=== PATIENT | male | born 1980 | race Caucasian/White ===

== ENCOUNTER 2023-09-18 18:23 | Emergency (ER) | payer OTHER ==
--- NOTE | 2023-09-18 18:50 | ED ---
URI HPI - General Source: patient, RN notes reviewed <Shanna Cisneros - Last Filed: 09/18/23 18:47> <Gil Raymond - Last Filed: 09/18/23 19:58> - General Stated Complaint: SOB, cough, headache Time Seen by Provider: 09/18/23 18:47 - History of Present Illness Initial Comments: Patient is a 43-year-old male presented ER with chief complaint of cough, congestion and fevers. Patient also was endorses myalgias. He states this been going on for a while but cough has gotten worse within the past couple of days. (Shanna Cisneros) 43-year-old male who is a current smoker presenting with cough, fever, myalgia. Symptoms have worsened over the past 2 or 3 days. Patient denies history of diabetes, denies heart history. Denies history of asthma or COPD. (Gil Raymond) - Related Data Previous Rx's Medication Instructions Recorded Azithromycin [Zithromax Z Pack] 1 tab PO DIRECTED #6 tab 09/18/23 Oseltamivir [Tamiflu] 75 mg PO Q12HR 5 Days #10 cap 09/18/23 Allergies Allergy/AdvReac Type Severity Reaction Status Date / Time No Known Allergies Allergy Verified 09/18/23 18:52 Review of Systems ROS Other: All systems not noted in ROS Statement are negative. <Shanna Cisneros - Last Filed: 09/18/23 18:47> ROS Other: All systems not noted in ROS Statement are negative. <Gil Raymond - Last Filed: 09/18/23 19:58> ROS Statement: Those systems with pertinent positive or pertinent negative responses have been documented in the HPI. General Exam <Shanna Cisneros - Last Filed: 09/18/23 18:47> General appearance: alert, in no apparent distress Head exam: Present: atraumatic, normocephalic Eye exam: Present: normal appearance, PERRL ENT exam: Present: mucous membranes moist Neck exam: Present: normal inspection. Absent: tenderness, meningismus Respiratory exam: Present: normal lung sounds bilaterally. Absent: respiratory distress, wheezes Cardiovascular Exam: Present: regular rate, normal rhythm GI/Abdominal exam: Present: soft. Absent: distended Extremities exam: Present: normal inspection, normal capillary refill Neurological exam: Present: alert, oriented X3, CN II-XII intact, normal gait. Absent: motor sensory deficit Psychiatric exam: Present: normal affect, normal mood Skin exam: Present: warm, dry, intact. Absent: cyanosis, diaphoretic <Gil Raymond - Last Filed: 09/18/23 19:58> - General Exam Comments Initial Comments: Visual Physical Exam Vital signs reviewed General: Well-appearing, nontoxic, no acute distress. Head: Normocephalic, atraumatic Eyes: PERRLA, EOMI ENT: Airway patent Chest: Nonlabored breathing Skin: No visual rash, normal skin tone Neuro: Alert and oriented 3 Musculoskeletal: No gross abnormalities (Shanna Cisneros) Course Vital Signs 09/18/23 18:49 Temperature 101.6 F H Pulse Rate 99 Respiratory 20 Rate Blood Pressure 141/92 O2 Sat by Pulse 98 Oximetry Medical Decision Making <Shanna Cisneros - Last Filed: 09/18/23 18:47> <Gil Raymond - Last Filed: 09/18/23 19:58> - Medical Decision Making I performed the quick note portion of the exam. Electronically signed by Shanna Cisneros PA-C (Shanna Cisneros) Was pt. sent in by a medical professional or institution ([facility] Herrera, DROP WORKER, urgent care, hospital, or residential...) When possible be specific @ -No Did you speak to anyone other than the patient for history (EMS, parent, family, police, friend...)? What history was obtained from this source @ -No Did you review nursing and triage notes (agree or disagree)? Why? @ -I reviewed and agree with nursing and triage notes Were old charts reviewed (outside hosp., previous admission, EMS record, old EKG, old radiological studies, urgent care reports/EKG's, residential records)? Report findings @ -No old charts were reviewed Differential Diagnosis (chest pain, altered mental status, abdominal pain women, abdominal pain men, vaginal bleeding, weakness, fever, dyspnea, syncope, headache, dizziness, GI bleed, back pain, seizure, CVA, palpatations, mental health, musculoskeletal)? @ -Differential Fever: Pneumonia, viral URI, endocarditis, myocarditis, pericarditis, otitis, sinusitis, peritonsillar Abscess, retropharyngeal Abscess, epiglottitis, peritonitis, appendicitis, Barbara cystitis, diverticulitis, hepatitis, colitis, UTI, PID, TOA, pyelonephritis, prostatitis, epididymitis, meningitis, encephalitis, pulmonary embolism, CVA, thyroid storm, pancreatitis, adrenal crisis, cavernous sinus thrombosis, this is not meant to be an all-inclusive list. EKG interpreted by me (3pts min.). @ -As above X-rays interpreted by me (1pt min.). @ -Chest x-ray showing right lower lobe infiltrate CT interpreted by me (1pt min.). @ -None done U/S interpreted by me (1pt. min.). @ -None done What testing was considered but not performed or refused? (CT, X-rays, U/S, labs)? Why? @ -None What meds were considered but not given or refused? Why? @ -None Did you discuss the management of the patient with other professionals (professionals i.e. , PA, DROP WORKER, lab, RT, psych nurse, social media content specialist, agricultural engineering technicians, teacher, program officer, case picker)? Give summary @ -No Was smoking cessation discussed for >3mins.? @ -No Was critical care preformed (if so, how long)? @ -No Were there social determinants of health that impacted care today? How? (Homelessness, low income, unemployed, alcoholism, drug addiction, transportation, low edu. Level, literacy, decrease access to med. care, penitentiary, rehab)? @ -No Was there de-escalation of care discussed even if they declined (Discuss DNR or withdrawal of care, Hospice)? DNR status @ -No What co-morbidities impacted this encounter? (DM, HTN, Smoking, COPD, CAD, Cancer, CVA, ARF, Chemo, Hep., AIDS, mental health diagnosis, sleep apnea, morbid obesity)? @ -Tobacco Was patient admitted / discharged? Hospital course, mention meds given and route, prescriptions, significant lab abnormalities, going to OR and other pertinent info. @ -43-year-old male with flulike symptoms, testing positive for influenza A. Chest x-ray does show right lower lobe infiltrate. Patient is instructed on fever control hydration. He will be prescribed Tamiflu and antibiotic for concurrent bacterial pneumonia. Return parameters discussed. Undiagnosed new problem with uncertain prognosis? @ -No Drug Therapy requiring intensive monitoring for toxicity (Heparin, Nitro, Insulin, Cardizem)? @ -No Were any procedures done? @ -No Diagnosis/symptom? @ -Influenza A, pneumonia Acute, or Chronic, or Acute on Chronic? @ -[Acute Uncomplicated (without systemic symptoms) or Complicated (systemic symptoms)? @ -Default Side effects of treatment? @ -No Exacerbation, Progression, or Severe Exacerbation? @ -No Poses a threat to life or bodily function? How? (Chest pain, [place], [place], pneumonia, PE, COPD, DKA, ARF, appy, cholecystitis, CVA, Diverticulitis, Homicidal, Suicidal, threat to staff... and all critical care pts) @ -[Low risk at this time (Gil Raymond) - Lab Data Lab Results 09/18/23 Range/Units 18:52 Influenza Type A (PCR) Detected A (Not Detectd) Influenza Type B (PCR) Not Detected (Not Detectd) RSV (PCR) Not Detected (Not Detectd) SARS-CoV-2 (PCR) Not Detected (Not Detectd) Disposition <Shanna Cisneros - Last Filed: 09/18/23 18:47> Is patient prescribed a controlled substance at d/c from ED?: No Time of Disposition: 19:51 <Gil Raymond - Last Filed: 09/18/23 19:58> Clinical Impression: Influenza Disposition: HOME SELF-CARE Condition: Fair Instructions (If sedation given, give patient instructions): Influenza (ED) Prescriptions: Oseltamivir [Tamiflu] 75 mg PO Q12HR 5 Days #10 cap Azithromycin [Zithromax Z Pack] 1 tab PO DIRECTED #6 tab Referrals: Nonstaff,Physician [Primary Care Provider] - 1-2 days
[2023-09-18 19:15] VITALS: BP 141/92; PULSE 99; RESP 20; TEMP 101.6
--- NOTE | 2023-09-18 19:31 | XR ---
EXAMINATION TYPE: XR chest 2V DATE OF EXAM: 09/18/2023 7:07 PM CLINICAL INDICATION:Male, 43 years old with history of cough; COMPARISON: None TECHNIQUE: XR chest 2V Frontal and lateral views of the chest. FINDINGS: Lungs/Pleura: Right lower lobe airspace opacities. There is no evidence of pleural effusion, focal co nsolidation, or pneumothorax. Pulmonary vascularity: Unremarkable. Heart/mediastinum: Cardiomediastinal silhouette is unremarkable. Musculoskeletal: No acute osseous pathology. IMPRESSION: Right lower lobe airspace opacities correlate for pneumonia.
== END 2023-09-18 20:06 | disposition home or self-care (01) ==
LOC: EC 18:23
DX: J10.1 Influenza due to other identified influenza virus with other respiratory manifestations (principal); Z20.822 Contact with and (suspected) exposure to COVID-19
CPT/HCPCS: 71046; 87636; 99284

== ENCOUNTER → 2024-07-14 | Outpatient (CLI) | payer OTHER ==
[2024-07-14 19:00] LABS: Basophils # (A) 0.05 X 10*3/uL (0.00-0.10); Basophils % (A) 0.6 %; Eosinophils # (A) 0.17 X 10*3/uL (0.04-0.35); Eosinophils % (A) 2.1 %; HGB 15.9 g/dL (13.0-17.0); Lymphocytes # (A) 2.35 X 10*3/uL (0.90-5.00); Lymphocytes % (A) 29.2 %; MCH 28.7 pg (27.0-32.0); MCHC 32.4 g/dL (32.0-37.0); MCV 88.4 FL (80.0-97.0); Mean Platelet Volume 10.1 FL (9.5-12.2); Monocytes # (A) 0.38 X 10*3/uL (0.20-1.00); Monocytes % (A) 4.7 %; NRBC Per 100 WBC 0 X 10*3/uL (0.00-0.01); Neutrophils # (A) 5.09 X 10*3/uL (1.80-7.70); Neutrophils % (A) 63.2 %; Platelet Count 277 X 10*3/uL (140-440); RBC 5.54 X 10*6/uL (4.40-5.60); WBC 8.06 X 10*3/uL (4.50-10.00)
[2024-07-14 19:21] LABS: VLDL Calculation 18.04 mg/dL (5.00-40.00)
[2024-07-14 19:22] LABS: ALT 25 U/L (10-49); AST 34 U/L (14-35); Albumin 5.1 g/dL (3.8-4.9); Alkaline Phosphatase 67 U/L (41-126); BUN/Creat Ratio 12.56 Ratio (12.00-20.00); Blood Urea Nitrogen 11.3 mg/dL (9.0-27.0); Calcium 10.6 mg/dL (8.7-10.3); Carbon Dioxide 27.6 mmol/L (21.6-31.8); Chloride 100 mmol/L (96-109); Glucose 79 mg/dL (70-110); LDL Cholesterol,Calculated 146.2 mg/dL (0.0-131.0); Potassium 4.3 mmol/L (3.5-5.5); Sodium 139 mmol/L (135-145); Total Bilirubin 0.4 mg/dL (0.3-1.2); Total Protein 8.1 g/dL (6.2-8.2)
[2024-07-14 20:53] LABS: HIV 2 AB Non-Reactive (Non-Reactive); HIV AB P24 Non-Reactive (Non-Reactive); HIV P24 AG Non-Reactive (Non-Reactive)
--- NOTE | 2024-07-15 18:28 | US ---
EXAMINATION TYPE: US groin RT DATE OF EXAM: 07/14/2024 COMPARISON: NONE CLINICAL INDICATION: Male, 44 years old with history of [id number] RT GROIN PAIN; Right groin pain/lump x 1.5 months. TECHNIQUE: Scanned right groin/inguinal canal FINDINGS: Hypoechoic, possible defect seen with movement upon valsalva maneuver within crease of rig ht groin. Possible defect measures 0.5 cm in transverse. Consider additional imaging modality to con firm. IMPRESSION: Right fat containing inguinal hernia suggested, confirmation with CT imaging recommended. [facility], , 07/15/2024 6:26 PM
== END | disposition home or self-care (01) ==
LOC: RADUSWWP 14:56
PROVIDERS: ATTEND Internal Medicine
DX: Z00.00 Encounter for general adult medical examination without abnormal findings (principal); R10.31 Right lower quadrant pain
CPT/HCPCS: 80053; 80061; 84443; 85025; 86803; 87390

== ENCOUNTER → 2024-09-23 | Outpatient (CLI) | payer OTHER ==
[2024-09-23 19:14] LABS: Basophils # (A) 0.05 X 10*3/uL (0.00-0.10); Basophils % (A) 0.8 %; Eosinophils # (A) 0.16 X 10*3/uL (0.04-0.35); Eosinophils % (A) 2.7 %; HCT 42.1 % (39.6-50.0); HGB 14.3 g/dL (13.0-17.0); Lymphocytes # (A) 2.45 X 10*3/uL (0.90-5.00); Lymphocytes % (A) 40.8 %; MCH 30.4 pg (27.0-32.0); MCV 89.4 FL (80.0-97.0); Monocytes # (A) 0.47 X 10*3/uL (0.20-1.00); Monocytes % (A) 7.8 %; NRBC Per 100 WBC 0 X 10*3/uL (0.00-0.01); Neutrophils # (A) 2.86 X 10*3/uL (1.80-7.70); Neutrophils % (A) 47.7 %; Platelet Count 278 X 10*3/uL (140-440); RBC 4.71 X 10*6/uL (4.40-5.60); RDW 13.1 % (11.5-14.5)
== END | disposition home or self-care (01) ==
LOC: LABPAT 12:46
PROVIDERS: ATTEND Surgery
DX: Z01.818 Encounter for other preprocedural examination (principal); K40.90 Unilateral inguinal hernia, without obstruction or gangrene, not specified as recurrent
CPT/HCPCS: 36415; 85025; 86850; 86900; 86901; 93005

== ENCOUNTER 2024-09-28 05:35 | Day surgery (SDC) | payer OTHER ==
[2024-09-27 12:31] VITALS: BMI 25.8
[2024-09-28] MEDS: LACTATED RINGERS 1,000 ML IV ONE (06:22)
[2024-09-28] MEDS ORDERED: HYDROmorphone 0.5 MG/0.5 ML SYRINGE IVP PRN (07:00)
[2024-09-28] MEDS: ACETAMINOPHEN TAB 500 MG TAB PO PRN (07:09)
[2024-09-28] MEDS: LACTATED RINGERS 1,000 ML IV SCH (07:09)
[2024-09-28] MEDS: ONDANSETRON 4 MG/2 ML VIAL IVP ONE (07:15)
[2024-09-28] MEDS: DEXAMETHASONE SOD PHOSPHATE 4 MG/ML 1 ML VIAL IV ONE (07:15)
[2024-09-28 07:22] LABS: ALT 22 U/L (4-49); AST 34 U/L (17-59); African American GFR (CKD) >90 (>60 ml/min/1.73 sqM); Albumin 4.8 g/dL (3.5-5.0); Alkaline Phosphatase 74 U/L (38-126); Anion Gap 10 mmol/L; Blood Urea Nitrogen 15 mg/dL (9-20); Calcium 10.2 mg/dL (8.4-10.2); Carbon Dioxide 28 mmol/L (22-30); Chloride 102 mmol/L (98-107); Glucose 82 mg/dL (74-99); Non-African American GFR(CKD) >90 (>60 ml/min/1.73 sqM); Potassium 4.1 mmol/L (3.5-5.1); Sodium 140 mmol/L (137-145); Total Bilirubin 0.4 mg/dL (0.2-1.3)
[2024-09-28] MEDS: MIDAZOLAM 2 MG/2 ML VIAL IV ONE (07:27)
[2024-09-28] MEDS ORDERED: DEXAMETHASONE SOD PHOSPHATE 4 MG/ML 1 ML VIAL ONE (07:39)
[2024-09-28] MEDS ORDERED: PROPOFOL 10 MG/ML 20 ML VIAL IV ONE (07:39)
[2024-09-28] MEDS ORDERED: MIDAZOLAM 2 MG/2 ML VIAL ONE (07:39)
[2024-09-28] MEDS ORDERED: KETOROLAC 15 MG/ML 1 ML VIAL ONE (07:39)
[2024-09-28] MEDS ORDERED: ROCURONIUM 10 MG/ML (5 ML VIAL) IV ONE (07:39)
[2024-09-28] MEDS ORDERED: NEOSTIGMINE 1 MG/ML 10 ML VIAL ONE (07:39)
[2024-09-28] MEDS ORDERED: SUCCINYLCHOLINE CHLORIDE 200 MG/10 ML VIAL IV ONE (07:39)
[2024-09-28] MEDS ORDERED: fentaNYL (PF) 50 MCG/ML 2 ML AMP ONE (07:39)
[2024-09-28] MEDS ORDERED: SODIUM CHLORIDE 0.9% (PF) 10 ML VIAL ONE (07:39)
[2024-09-28] MEDS ORDERED: GLYCOPYRROLATE 0.2 MG/ML 2 ML VIAL ONE (07:39)
[2024-09-28] MEDS ORDERED: KETAMINE HCL IN 0.9 % NACL 50 MG/5 ML SYRINGE ONE (07:39)
[2024-09-28] MEDS ORDERED: ROPIVACAINE 5 MG/ML 30 ML VIAL ONE (07:39)
[2024-09-28] MEDS ORDERED: LIDOCAINE 1% INJ 10MG/ML (20 ML MDV) ONE (07:39)
[2024-09-28] MEDS: HEPARIN SODIUM,PORCINE 5,000 UNIT/ML 1 ML VIAL SQ PRN (07:40)
[2024-09-28] MEDS: LIDOCAINE 2%-EPI 1:100,000 20 ML VIAL SQ ONE (08:04)
[2024-09-28 08:46] VITALS: TEMP 96.8
--- NOTE | 2024-09-28 08:48 | P.OP ---
Date of Procedure: 09/28/24 Preoperative Diagnosis: Recurrent right inguinal hernia Postoperative Diagnosis: Same Procedure(s) Performed: Laparoscopic robot-assisted repair of recurrent right inguinal hernia Transversus abdominis plane block Anesthesia: LYNETTEA Surgeon: Bandar Wylie Estimated Blood Loss (ml): 5 Pathology: none sent Condition: stable Disposition: PACU Description of Procedure: My robotic
[2024-09-28] MEDS: IV FLUID CONTINUATION 1,000 ML IV ONE (08:51)
--- NOTE | 2024-09-28 08:58 | P.OP ---
Date of Procedure: 09/28/24 Preoperative Diagnosis: Recurrent right inguinal hernia Postoperative Diagnosis: Recurrent right inguinal hernia Procedure(s) Performed: Laparoscopic robot-assisted pair of recurrent right inguinal hernia transversus abdominis plane block Anesthesia: DEBBIE BOSWELL Surgeon: Bandar Wylie Estimated Blood Loss (ml): 5 Pathology: none sent Condition: stable Disposition: PACU Description of Procedure: The patient's placed on the operating table in the supine position. The patient received general anesthesia. The patient's abdomen was prepped and draped in usual sterile fashion. The skin was anesthetized 1% local Xylocaine at the incision sites. Using an 11 blade a skin incision was made at the umbilicus. The fascia was grasped with a [place] and then the peritoneal cavity was entered with the Veress needle. Position of the Veress needle was confirmed with a positive drop test. After adequate insufflation a 5 mm trocar was placed into the peritoneal cavity. The Laparoscope was placed the peritoneal cavity. And a robotic 8 mm trocar was placed in the right lateral position and then another 8 mm robotic trochars placed in the left lateral position. The original 5 mm trocar was exchanged for a 8 mm trocar. A four quadrant transversus abdominal bloc was performed with 1% local xylocaine. The patient was placed in reverse Trendelenburg and then the patient was docked to the robot. Next the peritoneum over top of the hernia was incised and then using blunt and sharp dissection and electrocautery the hernia sac was dissected free from the floor of the inguinal canal. The hernia sac was completely reduced into the peritoneal cavity. The cord lipoma was diseected free and sent to pathology And then using the Pro pipe smoking machine operator mesh the hernia was repaired. The peritoneum was then sutured with 20V lock suture. The patient was then undocked the robot. The needle was withdrawn from the peritoneal cavity. The umbilical trocar site was closed with 0 Ethibond suture. The skin was closed interrupted 3-0 Monocryl suture. Dermabond dressing was applied. Patient was sent to recovery in stable condition.
[2024-09-28 09:10] VITALS: RESP 16
[2024-09-28 09:54] VITALS: BP 132/76; PULSE 52
--- NOTE | 2024-09-28 11:05 | P.ANPRN ---
Procedure Note - Anesthesia - Nerve Block Performed Bilateral Erector Spinae Single Time Out Performed: Yes Date of Procedure: 09/28/24 Procedure Start Time: : Procedure Stop Time: :39 Location of Patient: PreOp Indication: Acute Post-Operative Pain, Requested by Surgeon Sedation Type: Sedate with meaningful contact maintained Preparation: Sterile Prep Position: Prone Needle Types: Pajunk Needle Gauge: 21 Ultrasound used to visualize needle placement: Yes Ultrasound used to observe medication spread: Yes Blood Aspirated: No Pain Paresthesia on Injection Noted: No Resistance on Injection: Normal Image Stored and Saved: Yes Events: Uneventful and Well Tolerated (Ropivacaine 0.5% 15 cc plus dexamethasone 4 mg plus normal saline 10 cc given bilaterally at L1)
== END 2024-09-28 09:58 | disposition home or self-care (01) ==
LOC: OR 05:35
PROVIDERS: ATTEND Surgery
DX: K40.91 Unilateral inguinal hernia, without obstruction or gangrene, recurrent (principal); D17.6 Benign lipomatous neoplasm of spermatic cord; G89.18 Other acute postprocedural pain; F17.210 Nicotine dependence, cigarettes, uncomplicated
CPT/HCPCS: 49651; S2900; 64468; 64999; 80053